=== PATIENT | female | born 1985 | race African-American/Black ===

== ENCOUNTER 2020-07-25 14:44 | Emergency (ER) | payer MEDICAID ==
[~2020-07-25] VITALS: Ht 167.6 cm; Wt 95.0 kg
[2020-07-25] MEDS ORDERED: ALBUTEROL (0.083%) 2.5MG/3ML NEB HHN STA (15:16)
[2020-07-25 17:49] VITALS: BP 121/67
== END 2020-07-25 17:50 | disposition home or self-care (01) ==
LOC: ER 14:54
DX: J45.909 Unspecified asthma, uncomplicated (principal); R05 Cough; Z98.890 Other specified postprocedural states
CPT/HCPCS: 71045; 94640; 99283; Z7610

== ENCOUNTER 2020-08-08 11:37 | Emergency (ER) | payer MEDICAID ==
[~2020-08-08] VITALS: Ht 167.6 cm; Wt 91.0 kg
[2020-08-08] MEDS ORDERED: PREDNISONE 20MG TABLET PO STA (11:43)
[2020-08-08] MEDS ORDERED: IPRATROPIUM BROMIDE (0.02%) 0.5MG/2.5ML NEB HHN STA (11:43)
[2020-08-08] MEDS ORDERED: ALBUTEROL (0.083%) 2.5MG/3ML NEB HHN STA (11:43)
[2020-08-08 14:10] VITALS: BP 131/79
== END 2020-08-08 14:18 | disposition home or self-care (01) ==
LOC: ER 11:37
DX: J45.901 Unspecified asthma with (acute) exacerbation (principal); F17.210 Nicotine dependence, cigarettes, uncomplicated; Z71.6 Tobacco abuse counseling; Z98.890 Other specified postprocedural states
CPT/HCPCS: 71045; 93005; 94644; 99285; 99406; J7512; Z7610

== ENCOUNTER 2021-03-24 12:07 | Emergency (ER) | payer MEDICAID ==
[~2021-03-24] VITALS: Ht 170.2 cm; Wt 87.0 kg
[2021-03-24 12:18] VITALS: BP 136/85
[2021-03-24] MEDS ORDERED: IPRATROPIUM BROMIDE (0.02%) 0.5MG/2.5ML NEB HHN STA (12:31)
[2021-03-24] MEDS ORDERED: ALBUTEROL (0.083%) 2.5MG/3ML NEB HHN STA (12:31)
[2021-03-24] MEDS ORDERED: PREDNISONE 20MG TABLET PO STA (12:31)
== END 2021-03-24 13:50 | disposition left against medical advice (07) ==
LOC: ER 12:07
DX: R06.2 Wheezing (principal); R05 Cough; E11.9 Type 2 diabetes mellitus without complications; Z98.890 Other specified postprocedural states
CPT/HCPCS: 82962; 94640; 99283; Z7610

== ENCOUNTER 2021-09-11 18:06 | Inpatient (IN) | payer MEDICAID, OTHER ==
[~2021-09-11] VITALS: Ht 165.1 cm; Wt 78.0 kg
[~2021-09-11 18:06] MED LIST: ALBU6.7H9 INH
[2021-09-11] MEDS ORDERED: METHYLPREDNISOLONE SOD SUCC 125 MG/2 ML VIAL IV STA (18:55)
[2021-09-11] MEDS ORDERED: IPRATROPIUM BROMIDE (0.02%) 0.5MG/2.5ML NEB HHN STA (18:55)
[2021-09-11] MEDS ORDERED: KETOROLAC 30MG/ML VIAL IV STA (18:55)
[2021-09-11] MEDS ORDERED: SODIUM CHLORIDE 0.9% 1,000 ML IV ONE (19:00)
[2021-09-11] MEDS ORDERED: VANCOMYCIN 1 G PREMIX 200 ML IV ONE (20:00)
[2021-09-11] MEDS ORDERED: PIPERACILLIN/TAZ 3.375G PREMIX 50 ML IV ONE (20:00)
[2021-09-11 21:19] LABS: CHLORIDE 101 mEq/L (98-107)
[2021-09-11 21:34] LABS: HEMATOCRIT. 23.2 % (36.0-48.0); HEMOGLOBIN. 7.2 g/dL (12.0-16.0); MEAN CORPUSCULAR HEMOGLOBIN 20.1 pg (28.0-32.0); MEAN CORPUSCULAR VOLUME 64.8 fL (81.0-99.0); MEAN PLATELET VOLUME 7.1 fl (7.4-10.4); PLATELET 610 x1000/uL (130-400); RED BLOOD CELL COUNT 3.58 mill/uL (4.2-5.4); RED CELL DISTRIBUTION WIDTH 19.5 % (11.6-14.6)
[2021-09-11 21:57] LABS: PLATELET ESTIMATE INCREASED
[2021-09-11] MEDS ORDERED: ASPIRIN 325MG EC TABLET PO ONE (23:45)
[2021-09-12] MEDS ORDERED: ALBUTEROL 6.7GM HFA INHALER ORI PRN (09:45)
[2021-09-12] MEDS ORDERED: POTASSIUM CHLORIDE 20MEQ TABLET SR PO NR (09:45)
[2021-09-12] MEDS ORDERED: ONDANSETRON HCL 4MG/2ML INJ IV PRN (09:45)
[2021-09-12] MEDS ORDERED: ACETAMINOPHEN 325MG TABLET PO PRN (09:45)
[2021-09-12] MEDS ORDERED: ENOXAPARIN 40MG/0.4ML SYR SUBCUT SCH (10:00)
[2021-09-12] MEDS: ALBUTEROL (0.083%) 2.5MG/3ML NEB HHN SCH ×2 (13:18→13:19)
[2021-09-12 13:30] VITALS: BP 106/67
[2021-09-12 17:34] LABS: TOTAL IRON BINDING CAPACITY 259 ug/dL (250-450)
[2021-09-13] MEDS ORDERED: DEXAMETHASONE 10 MG/ML VIAL IV SCH (09:00)
== END 2021-09-12 16:43 | disposition left against medical advice (07) | DRG 137 ==
LOC: ER 18:06 → MICUSO 21:27
PROVIDERS: ADMIT Internal Medicine; ATTEND Internal Medicine
DX: U07.1 COVID-19 (principal); E43 Unspecified severe protein-calorie malnutrition; J18.9 Pneumonia, unspecified organism; E87.1 Hypo-osmolality and hyponatremia; J45.901 Unspecified asthma with (acute) exacerbation; Z53.21 Procedure and treatment not carried out due to patient leaving prior to being seen by health care provider; E11.9 Type 2 diabetes mellitus without complications; F17.200 Nicotine dependence, unspecified, uncomplicated; Z98.891 History of uterine scar from previous surgery; Z98.51 Tubal ligation status; E87.6 Hypokalemia; D64.9 Anemia, unspecified; Z68.28 Body mass index [BMI] 28.0-28.9, adult; Z71.6 Tobacco abuse counseling
CPT/HCPCS: 36415; 71045; 80053; 82728; 83540; 83550; 83880; 84484; 85025; 87426; 93005; 99291; J1650; J1885; J2543; J2930; J3370; J7030